=== PATIENT | female | born 1980 | race Caucasian/White ===

== ENCOUNTER 2024-09-25 16:31 | Emergency (ER) | payer OTHER ==
[~2024-09-25] VITALS: Ht 167.6 cm; Wt 96.6 kg
[2024-09-25] MEDS ORDERED: FAMO40TA3 PO (16:51)
[2024-09-25] MEDS ORDERED: SERT-141 PO (16:51)
[2024-09-25] MEDS ORDERED: TOPA100T12 PO (16:51)
[2024-09-25] MEDS ORDERED: OMEP40CA4 PO (16:51)
[2024-09-25] MEDS: IBUPROFEN 600MG TAB PO ONE (17:51)
[2024-09-25] MEDS: CEPHALEXIN 500 MG CAP PO ONE (17:51)
[2024-09-25 19:33] VITALS: BP 102/64; TEMP 98.5; O2SAT 99
[2024-09-25] MEDS ORDERED: CEPH500C PO (20:34)
== END 2024-09-25 20:46 | disposition home or self-care (01) ==
LOC: M ED 16:31
DX: L03.115 Cellulitis of right lower limb (principal); F41.9 Anxiety disorder, unspecified; F32.A Depression, unspecified; Z98.84 Bariatric surgery status; Z79.2 Long term (current) use of antibiotics; Z79.899 Other long term (current) drug therapy

== ENCOUNTER → 2024-09-28 | Outpatient (CLI) | payer OTHER ==
[~2024-09-28] MED LIST: CEPH500C PO; FAMO40TA3 PO; OMEP40CA4 PO; SERT-141 PO; TOPA100T12 PO
== END ==
LOC: M SOG 07:55
PROVIDERS: ATTEND Orthopaedic Surgery
DX: M25.571 Pain in right ankle and joints of right foot (principal)

== ENCOUNTER → 2024-09-28 | Outpatient (CLI) | payer OTHER ==
[2024-09-28 15:41] LABS: HEMOGLOBIN 12.4 g/dl (12.0-15.5); MEAN CORPUSCULAR HEMOGLOBIN 29.2 pg (27.0-33.0); MEAN CORPUSCULAR HGB CONC 32.6 g/dl (32.0-36.5); MEAN CORPUSCULAR VOLUME 89.6 fl (80.0-96.0); PLATELET COUNT, AUTOMATED 311 10^3/uL (150-450); RED BLOOD COUNT 4.24 10^6/uL (4.00-5.40); WHITE BLOOD COUNT 6.3 10^3/uL (4.0-10.0)
[2024-09-28 15:51] LABS: ERYTHROCYTE SEDIMENTATION RATE 44 mm/hr (0-20)
[2024-09-28 16:00] LABS: ATYPICAL LYMPH 6 % (0-5); BASOPHILS 1 % (0-1); EOSINOPHILS 1 % (0-3); LYMPHOCYTES 35 % (16-44); MONOCYTES 4 % (0-5); NEUTROPHILS 53 % (28-66); PLATELET ESTIMATE NORMAL (NORMAL)
[2024-09-28 16:05] LABS: C REACTIVE PROTEIN QUANTITATIV 2.56 MG/DL (<1.0)
[2024-09-28 16:07] LABS: ALBUMIN 3.4 G/DL (3.2-5.2); ALKALINE PHOSPHATASE 81 U/L (35-104); ALT/SGPT 23 U/L (7.0-40); AST/SGOT 19 U/L (<34); BILIRUBIN,TOTAL 0.3 MG/DL (0.3-1.2); BLOOD UREA NITROGEN 13 MG/DL (9-23); CALCIUM LEVEL 9.2 MG/DL (8.5-10.1); CARBON DIOXIDE LEVEL 21 MMOL/L (20-31); CHLORIDE LEVEL 112 MMOL/L (98-107); CREATININE FOR GFR 0.69 MG/DL (0.55-1.30); GLOMERULAR FILTRATION RATE > 90.0 (>58); GLUCOSE, FASTING 83 MG/DL (60-100); POTASSIUM SERUM 4.6 MMOL/L (3.5-5.1); SODIUM LEVEL 142 MMOL/L (136-145); TOTAL PROTEIN 6.8 G/DL (5.7-8.2)
[2024-09-28 16:27] LABS: PROCALCITONIN 0.04 ng/ml
[2024-09-28 16:28] LABS: URIC ACID 3.2 MG/DL (3.1-7.8)
== END ==
LOC: M LAB 14:56
PROVIDERS: ATTEND Orthopaedic Surgery
DX: B99.9 Unspecified infectious disease (principal)